=== PATIENT | female | born 1965 | race Caucasian/White ===

== ENCOUNTER 2023-10-29 00:11 | Emergency (ER) | payer MEDICARE, OTHER, SELFPAY ==
[2023-10-29 00:13] VITALS: BP 137/91
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
[2023-10-29 00:38] LABS: % Basophils 0.6 % (0-2); % Eosinophils 1.5 % (0-6); % Immature Granulocytes 0.3 % (0-0.5); % Lymphocytes 38.3 % (20.5-51.1); % Neutrophils 52.3 % (42.2-75.2); Absolute Eosinophils 0.1 10^3/uL (0-0.7); Absolute Lymphocytes 2.7 10^3/uL (1.2-3.4); Absolute Monocytes 0.5 10^3/uL (0.1-0.6); Absolute Neutrophils 3.7 10^3/uL (1.4-6.5); Hematocrit 37.4 % (37.0-47.0); Hemoglobin 13.2 g/dL (12.0-16.0); Mean Corp Hgb Conc. 35.3 g/dL (33.0-37.0); Mean Corpuscular Hgb 31.1 pg (27.0-31.0); Mean Platelet Volume 9.4 fL (7.4-10.4); Nucleated Red Blood Cells % 0 %; Platelet Count 267 10^3/uL (130-400); Red Blood Cell Count 4.25 10^6/uL (4.20-5.40); Red Cell Dist. Width 11.9 % (11.5-14.5); White Blood Cell Count 7.1 10^3/uL (4.8-10.8)
[2023-10-29] MEDS: NSS 1000 IV (00:42)
[2023-10-29] MEDS: TORADOL 30 MG IV (00:43)
[2023-10-29] MEDS: PROTONIX IV 40 MG IV (00:43)
[2023-10-29] MEDS: ZOFRAN 4 MG IV (00:43)
[2023-10-29 00:49] LABS: HCG, Serum Qualitative Screen Negative
[2023-10-29 00:54] LABS: ALT (SGPT) 23 U/L (0-35); AST (SGOT) 28 U/L (14-36); Albumin 5.1 g/dl (3.5-5.0); Alkaline Phosphatase 68 U/L (38-126); Blood Urea Nitrogen 19 mg/dl (7-17); Calcium 10.3 mg/dl (8.4-10.2); Carbon Dioxide 24 mmol/L (22-30); Chloride 105 mmol/L (98-107); Glucose 127 mg/dl (70-99); Lipase 322 U/L (23-300); Potassium 3.7 mmol/L (3.5-5.1); Sodium 141 mmol/L (135-145); Total Bilirubin 0.4 mg/dl (0.2-1.3); eGFR > 60.00
[2023-10-29 01:17] VITALS: BP 148/86
[2023-10-29 02:00] VITALS: BP 147/94
[2023-10-29 02:07] LABS: Urine Albumin Negative (Neg - Trace); Urine Bilirubin Negative (Negative); Urine Character Clear (Clear); Urine Color Yellow; Urine Glucose Negative (Negative); Urine Ketone Negative (Negative); Urine Leukocyte Trace (Negative); Urine Nitrite Negative (Negative); Urine Occult Blood Negative (Negative); Urine Urobilinogen Negative (Neg - 1+)
[2023-10-29] MEDS: MAALOX 50 PO (02:32)
[2023-10-29 02:50] LABS: Urine Bacteria Few (Negative); Urine Red Blood Cell None Seen /HPF (0-2); Urine Squamous Cell 0-2 /LPF (Few); Urine White Cell 0-2 /HPF (0-5)
[2023-10-29 03:00] VITALS: BP 149/87
[2023-10-29 04:01] VITALS: BP 127/79
== END 2023-10-29 04:11 | disposition home or self-care (01) ==
LOC: EMR 00:11
PROVIDERS: EMERGENCY PHYSICIAN Emergency Medicine
DX: K80.70 Calculus of gallbladder and bile duct without cholecystitis without obstruction (principal)
CPT/HCPCS: 99285; 96374; 96375 ×3; 96361 ×2; 76700; 80053; 81003; 81015; 83690; 84703; 85025; 93005

== ENCOUNTER 2024-01-17 06:17 | Day surgery (SDC) | payer MEDICARE, OTHER, SELFPAY ==
[2024-01-17] VITALS (7 sets, daily range): BP systolic 123–139; BP diastolic 65–95; BMI 25.9
[2024-01-17] MEDS: NORMOSOL-R 1000 IV (13:36)
--- NOTE | 2024-01-17 14:55 | W.SUR.PREOP ---
Pre-Operative Surgical Note
-
I have examined this patient prior to the performance of the scheduled procedure. She reports no major changes in her history however she is currently having a migraine and quite nauseous. Did offer her the opportunity to cancel/reschedule this
surgery however she insist that she wanted to continue with this operation and felt like she will feel much better after anesthesia. She does report that she smoked marijuana earlier today which she typically uses for her migraines as well as
nausea control however 'did not get to it in time' and so the headache is worsened.
The patient's condition is otherwise unchanged from the time of the current History and Physical and the patient is able to undergo the scheduled procedure.
--- NOTE | 2024-01-17 16:12 | W.IMMPOSTOP ---
Surgical Immed Post Op Note
-
Primary Surgeon: Alex Patrick MD
Assisting Surgeon: Ulysses Ralph MD PGY1
Pre-op Diagnosis: Biliary colic
Post-op Diagnosis: Same
Procedure Performed: Laparoscopic cholecystectomy with cholangiogram
Anesthesia Type: General
Specimen / Cultures: Gallbladder and contents
Estimated Blood Loss: 3 cc
Complications: None
Operative Findings: Some flimsy adhesions from the duodenum to the infundibulum of the gallbladder that was lysed sharply and with electrocautery dissection. Critical view of safety obtained prior to cholangiogram which demonstrated no filling
defects. Some small cholesterol stones were milked out of the ductotomy prior to the cholangiogram and removed.
--- NOTE | 2024-01-17 16:14 | OR.RPT ---
Operative Report
Operative Report
Patient Name: Em Dent
: 1965
Date of Operation: 01/17/2024
Preoperative Diagnosis: Symptomatic Cholelithiasis
Postoperative Diagnosis: Same
Procedure(s):
Laparoscopic Cholecystectomy with Cholangiogram
Surgeon(s):
Dr. Patrick
Boom Stick Worker(s):
Ulysses Ralph MD PGY1
Anesthesia: General
Estimated Blood Loss: 3 cc
Urine Output: None
Drains/Lines/Implants: [None]
Specimens:
1. Gallbladder and contents
HPI/Surgical Indications:
This is a 58-year-old female who presents with abdominal pain. Exam, labs and imaging are consistent with symptomatic cholelithiasis. Risks/Benefits/Alternatives were discussed at length, and the patient agreed to proceed with surgery.
Operative Findings: Some flimsy adhesions from the duodenum to the infundibulum of the gallbladder that was lysed sharply and with electrocautery dissection. Critical view of safety obtained prior to cholangiogram which demonstrated no filling
defects and normal biliary anatomy. There was brisk flow of dye into the duodenum. Some small cholesterol stones were milked out of the ductotomy prior to the cholangiogram and removed.
Procedure Description:
The patient was brought to the Operating Room and placed in the supine position. IV antibiotics were infused and sequential compression devices were confirmed to be on. Following uneventful induction of general endotracheal anesthesia, an
orogastric tube was placed. The abdomen was prepped and draped in the usual sterile fashion. The abdomen was entered using an infraumbilical open Ruthy technique with a 12 mm trocar. Pneumoperitoneum to 15 mmHg pressure was obtained without
difficulty and we confirmed that no injury had occurred during our entry. The patient was positioned in reverse trendelenberg and rotated with the right side up slightly. Three (3) 5mm trocars were then placed along the right subcostal margin. A
locking grasping forceps was placed on the fundus of the gallbladder where it was then retracted cephalad and to the right. Using appropriate grasping instruments, the peritoneum overlying the triangle of [place] was incised. The liver appeared
fairly large but had sharp borders and did not look steatotic. Part of the left lobe obscured review which required us to angulate our camera a little bit to see around it. The cystic duct/gallbladder junction was identified, dissected
circumferentially. The cystic artery was identified medially and was dissected circumferentially. A critical view was obtained. A clip was then placed on the cystic duct/gallbladder junction and a ductotomy was made. Some thick bile was first
expressed followed by 4 small yellow cholesterol stones that were quickly suctioned up and removed. An intraoperative cholangiogram performed using fluoroscopy, which showed good flow of dye into the duodenum. There were no intra- or extrahepatic
bile duct filling defects. The biliary anatomy appeared fairly normal however it did look like there was a trifurcation of the ducts at the hepatic plate as opposed to true left and right hepatic ducts. Following completion of the cholangiogram,
the catheter was removed. Two clips were then placed proximally on the cystic duct and the duct was divided. The stump was reinforced with a 0 PDS Endoloop. Two clips were placed proximally and one distally on the cystic artery, and the artery
was divided. Remaining soft tissue attachments of the gallbladder to the liver bed were then divided using electrocautery. There was no spillage of bile or stones. The gallbladder bed was inspected and excellent hemostasis was obtained. The
gallbladder was extracted through the 12 mm trocar site using an endocatch bag. There was a 1.5 to 2 cm palpable stone in the gallbladder. The abdomen was again irrigated and excellent hemostasis was assured. All remaining trocars were then
removed and the pneumoperitoneum was evacuated. The 12 mm trocar site was closed using a figure of 8 of 0 PDS. All trocar sites were closed at the skin level using 4-0 Monocryl followed by Dermabond. Overall, the patient tolerated the procedure
well and was taken to the Recovery Room postoperatively in stable condition.
I was the attending physician and performed the procedure with assistance from the resident above. I was present for all portions of the case
Alex Patrick MD
== END 2024-01-17 18:06 | disposition home or self-care (01) ==
LOC: SDS 06:17
PROVIDERS: ATTENDING PHYSICIAN Surgery
DX: K80.10 Calculus of gallbladder with chronic cholecystitis without obstruction (principal); K80.70 Calculus of gallbladder and bile duct without cholecystitis without obstruction
CPT/HCPCS: 47563; 88304; 74300; 76000

== ENCOUNTER 2024-08-12 11:57 | Emergency (ER) | payer MEDICARE, OTHER, SELFPAY ==
[2024-08-12 12:01] VITALS: BP 131/92
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
[2024-08-12 13:00] VITALS: BP 143/79
[2024-08-12] MEDS: REGLAN 10 MG IV (13:11)
[2024-08-12] MEDS: BENADRYL 25 MG IV (13:11)
[2024-08-12] MEDS: TORADOL 15 MG IV (13:11)
[2024-08-12] MEDS: NSS 1000 IV (13:12)
[2024-08-12 13:23] LABS: % Basophils 0.3 % (0-2); % Eosinophils 0.7 % (0-6); % Immature Granulocytes 0.2 % (0-0.5); % Lymphocytes 14.1 % (20.5-51.1); % Monocytes 5.9 % (1.7-9.3); % Neutrophils 78.8 % (42.2-75.2); Absolute Lymphocytes 0.9 10^3/uL (1.2-3.4); Absolute Monocytes 0.4 10^3/uL (0.1-0.6); Absolute Neutrophils 4.9 10^3/uL (1.4-6.5); Hematocrit 36.8 % (37.0-47.0); Hemoglobin 12.5 g/dL (12.0-16.0); Mean Corpuscular Hgb 30.3 pg (27.0-31.0); Mean Corpuscular Volume 89.3 fL (81.0-99.0); Mean Platelet Volume 9.4 fL (7.4-10.4); Nucleated Red Blood Cells % 0 %; Platelet Count 232 10^3/uL (130-400); Red Blood Cell Count 4.12 10^6/uL (4.20-5.40); Red Cell Dist. Width 12.4 % (11.5-14.5); White Blood Cell Count 6.2 10^3/uL (4.8-10.8)
[2024-08-12 13:32] LABS: ALT (SGPT) 26 U/L (0-35); AST (SGOT) 27 U/L (14-36); Albumin 4.7 g/dl (3.5-5.0); Alkaline Phosphatase 54 U/L (38-126); Blood Urea Nitrogen 22 mg/dl (7-17); Calcium 9.4 mg/dl (8.4-10.2); Carbon Dioxide 26 mmol/L (22-30); Chloride 104 mmol/L (98-107); Glucose 116 mg/dl (70-99); Lipase 162 U/L (23-300); Potassium 4.5 mmol/L (3.5-5.1); Sodium 141 mmol/L (135-145); Total Bilirubin 0.2 mg/dl (0.2-1.3); Total Protein 7.3 g/dl (6.3-8.2); eGFR > 60.00
[2024-08-12 13:34] LABS: Urine Albumin Negative (Neg - Trace); Urine Bilirubin Negative (Negative); Urine Character Clear (Clear); Urine Color Yellow; Urine Glucose Negative (Negative); Urine Ketone Negative (Negative); Urine Leukocyte Negative (Negative); Urine Nitrite Negative (Negative); Urine Occult Blood Negative (Negative); Urine Specific Gravity 1.015 (<1.030); Urine Urobilinogen Negative (Neg - 1+)
[2024-08-12 14:00] VITALS: BP 145/85
[2024-08-12 15:00] VITALS: BP 113/72
[2024-08-12 16:48] VITALS: BP 107/78
[2024-08-12 17:00] VITALS: BP 108/76
== END 2024-08-12 17:17 | disposition home or self-care (01) ==
LOC: EMR 11:57
PROVIDERS: Nurse Practitioner; EMERGENCY PHYSICIAN Emergency Medicine; FAMILY PHYSICIAN Emergency Medicine
DX: G43.909 Migraine, unspecified, not intractable, without status migrainosus (principal); R51.9 Headache, unspecified; F41.9 Anxiety disorder, unspecified; M19.90 Unspecified osteoarthritis, unspecified site; Z90.49 Acquired absence of other specified parts of digestive tract; Z98.51 Tubal ligation status
CPT/HCPCS: 99284; 96374; 96375; 76700; 80053; 81003; 83690; 85025

== ENCOUNTER → 2024-08-26 12:05 | Outpatient (REF) | payer MEDICARE, OTHER, SELFPAY | LOC: WDC 12:05 | PROVIDERS: ATTENDING PHYSICIAN Emergency Medicine | DX: Z00.00 Encounter for general adult medical examination without abnormal findings (principal); Z12.31 Encounter for screening mammogram for malignant neoplasm of breast | CPT/HCPCS: 77063; 77067 ==

== ENCOUNTER → 2024-09-05 13:54 | Outpatient (REF) | payer MEDICARE, OTHER, SELFPAY | LOC: RAD 13:54 | PROVIDERS: ATTENDING PHYSICIAN Emergency Medicine | DX: Z13.820 Encounter for screening for osteoporosis (principal); N95.1 Menopausal and female climacteric states; M85.88 Other specified disorders of bone density and structure, other site | CPT/HCPCS: 77080 ==

== ENCOUNTER 2025-05-16 15:46 | Emergency (ER) | payer MEDICARE, OTHER, SELFPAY ==
[2025-05-16 15:48] VITALS: BP 141/83
[2025-05-16 16:19] LABS: Hematocrit 38.3 % (37.0-47.0); Hemoglobin 13.2 g/dL (12.0-16.0); Mean Corp Hgb Conc. 34.5 g/dL (33.0-37.0); Mean Corpuscular Volume 88.5 fL (81.0-99.0); Nucleated Red Blood Cells % 0 %; Platelet Count 279 10^3/uL (130-400); Red Cell Dist. Width 11.9 % (11.5-14.5)
[2025-05-16 16:39] LABS: ALT (SGPT) 22 U/L (0-35); AST (SGOT) 25 U/L (14-36); Albumin 5.0 g/dl (3.5-5.0); Alkaline Phosphatase 67 U/L (38-126); Blood Urea Nitrogen 16 mg/dl (7-17); Calcium 10.0 mg/dl (8.4-10.2); Carbon Dioxide 23 mmol/L (22-30); Chloride 108 mmol/L (98-107); Glucose 122 mg/dl (70-99); Potassium 4.4 mmol/L (3.5-5.1); Sodium 139 mmol/L (135-145); Total Protein 7.7 g/dl (6.3-8.2); eGFR > 60.00
[2025-05-16 16:43] LABS: C-Reactive Protein < 5.00 mg/L (0.0-10.00)
[2025-05-16 19:40] VITALS: BP 135/84
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
[2025-05-16] MEDS: TORADOL 15 MG IV (20:02)
[2025-05-16] MEDS: NSS 1000 IV (20:02)
[2025-05-16] MEDS: COMPAZINE 10 MG IV (20:03)
[2025-05-16] MEDS: BENADRYL 50 MG IV (20:03)
[2025-05-17 00:13] VITALS: BP 102/66
== END 2025-05-17 00:13 | disposition home or self-care (01) ==
LOC: EMR 15:46
PROVIDERS: EMERGENCY PHYSICIAN Emergency Medicine; FAMILY PHYSICIAN Emergency Medicine
DX: R51.9 Headache, unspecified (principal); V89.2XXA Person injured in unspecified motor-vehicle accident, traffic, initial encounter; H40.9 Unspecified glaucoma; G89.29 Other chronic pain; M54.2 Cervicalgia; F41.9 Anxiety disorder, unspecified; M19.90 Unspecified osteoarthritis, unspecified site; Z98.51 Tubal ligation status
CPT/HCPCS: 99284; 96374; 96375; 96361; 70450; 80053; 85025; 85652; 86140

== ENCOUNTER → 2025-05-18 07:34 | Outpatient (REF) | payer MEDICARE, OTHER, SELFPAY | LOC: HWRAD 07:34 | PROVIDERS: ATTENDING PHYSICIAN Emergency Medicine | DX: Z13.6 Encounter for screening for cardiovascular disorders (principal); Z82.49 Family history of ischemic heart disease and other diseases of the circulatory system; R10.13 Epigastric pain; R13.19 Other dysphagia | CPT/HCPCS: 76770 ==

== ENCOUNTER → 2025-06-02 09:37 | Outpatient (REF) | payer MEDICARE, OTHER, SELFPAY | LOC: RAD 09:37 | PROVIDERS: ATTENDING PHYSICIAN Emergency Medicine | DX: R13.19 Other dysphagia (principal); R10.13 Epigastric pain | CPT/HCPCS: 74246 ==

== ENCOUNTER → 2025-07-16 08:23 | Outpatient (REF) | payer MEDICARE, OTHER, SELFPAY | LOC: PAVMRI 08:23 | PROVIDERS: ATTENDING PHYSICIAN Emergency Medicine | DX: Z86.69 Personal history of other diseases of the nervous system and sense organs (principal); R55 Syncope and collapse; R42 Dizziness and giddiness; Z87.820 Personal history of traumatic brain injury | CPT/HCPCS: 70553; A9575 ==